=== PATIENT | female | born 1980 | race Caucasian/White ===

== ENCOUNTER 2017-11-21 08:44 | Emergency (ER) | payer OTHER ==
--- NOTE | 2017-11-21 10:53 | RAD REPORT ---
EXAM DESCRIPTION: RAD - C Spine Ap/Lat - 11/21/2017 10:18 am CLINICAL HISTORY: Neck pain, radiculopathy. COMPARISON: None. FINDINGS: Cervical bodies are normal in height and alignment. No fracture or acute bony process seen . No disc space narrowing. There is no prevertebral soft tissue thickening or other suspicious soft tissue finding. IMPRESSION: Negative cervical spine examination.
--- NOTE | 2017-11-21 10:54 | ER ---
Nurse's Notes [facility] Name: Addis Jett Age: 37 yrs Sex: Female : 1980 Arrival Date: 11/21/2017 Time: 08:48 Bed 19 Private MD: Diagnosis: Sprain of ligaments of cervical spine;Muscle spasm of back Presentation: 11/21 08:59 Presenting complaint: Patient states: R sided neck pain that began 4 days ago, has ss gotten worse and now radiates down R arm and right side of back. Transition of care: patient was not received from another setting of care. Onset of symptoms was November 17, 2017. Care prior to arrival: None. 08:59 Method Of Arrival: Ambulatory ss 08:59 Acuity: NORAH 4 ss JOB HONER: 11:24 LMP N/A - aj1 Historical: - Allergies: 09:00 Sulfa (Sulfonamide Antibiotics); ss - Home Meds: 09:00 Ambien 10 mg Oral tab 1 tab once daily [Active]; Lyrica Oral [Active]; ss - PMHx: 09:00 chronic back pain; ss - PSHx: 09:00 None; ss - Immunization history:: Adult Immunizations up to date. - Social history:: Smoking status: Patient uses tobacco products, smokes one-half pack cigarettes per day. Screenin:01 Abuse screen: Denies threats or abuse. Denies injuries from another. Nutritional aj1 screening: No deficits noted. Tuberculosis screening: No symptoms or risk factors identified. 11:23 Fall Risk None identified. aj1 Assessment: 10:01 General: Appears in no apparent distress. uncomfortable, Behavior is calm, cooperative, aj1 appropriate for age. Pain: Complains of pain in right side of neck Pain radiates to right trapezius and right scapular area Pain currently is 9 out of 10 on a pain scale. Quality of pain is described as sharp, Pain began 4 days ago Is continuous, Alleviated by nothing. Aggravated by movement. Neuro: Level of Consciousness is awake, alert, obeys commands, Oriented to person, place, time, situation, Ent Physician are equal bilaterally Moves all extremities. Full function Gait is steady, Speech is normal, Facial symmetry appears normal. Cardiovascular: Patient's skin is warm and dry. Respiratory: Airway is patent Respiratory effort is even, unlabored, Respiratory pattern is regular, symmetrical. GI: No signs and/or symptoms were reported involving the gastrointestinal system. : No signs and/or symptoms were reported regarding the genitourinary system. EENT: No signs and/or symptoms were reported regarding the EENT system. Derm: No signs and/or symptoms reported regarding the dermatologic system. Skin is pink, warm \T\ dry. normal. Musculoskeletal: Range of motion: limited in neck. 11:23 Reassessment: Patient appears in no apparent distress at this time. Patient and/or aj1 family updated on plan of care and expected duration. Pain level reassessed. Patient is alert, oriented x 3, equal unlabored respirations, skin warm/dry/pink. Patient states symptoms have improved. Vital Signs: 09:00 BP 126 / 86; Pulse 102; Resp 16; Temp 97.9; Pulse Ox 100% on R/A; Weight 63.5 kg; ss Height 5 ft. 5 in. (165.10 cm); Pain 8/10; 10:01 BP 107 / 82; Pulse 93; Resp 18; Pulse Ox 100% on R/A; aj1 11:23 BP 110 / 81; Pulse 85; Resp 16; Pulse Ox 100% on R/A; aj1 09:00 Body Mass Index 23.30 (63.50 kg, 165.10 cm) ED Course: 08:48 Patient arrived in ED. sb2 08:59 Triage completed. ss 09:00 Arm band placed on right wrist. 09:51 Romel Fregoso PA is PHCP. 8 09:51 Brian Nielsen MD is Attending Physician. jr8 10:01 Sarah Tomas RN is Primary Nurse. aj1 10:01 Patient has correct armband on for positive identification. Bed in low position. Call aj1 light in reach. Side rails up X 1. 10:01 No provider procedures requiring assistance completed. aj1 10:17 XRAY C Spine Ap/lat In Process Unspecified. EDMS 11:23 Patient did not have IV access during this emergency room visit. aj1 Administered Medications: 10:47 Drug: TORadol 60 mg Route: IM; Site: right gluteus; aj1 11:24 Follow up: Response: No adverse reaction aj1 10:47 Drug: Soma 350 mg Route: PO; aj1 11:25 Follow up: Response: No adverse reaction aj1 Outcome: 10:54 Discharge ordered by . karolyn 11:24 Discharged to home ambulatory. aj1 11:24 Condition: good 11:24 Discharge instructions given to patient, Instructed on discharge instructions, follow up and referral plans. no drinking with medication, no driving heavy equipment, medication usage, Demonstrated understanding of instructions, follow-up care, medications, Prescriptions given X 3. 11:25 Patient left the ED. aj1 Signatures: Dispatcher [employer] EDSarah Reddy RN RN aj1 Charisma Shipman RN RN ss Romel Fregoso, JOSÉ MIGUEL PA jr8 Anny Camp sb2 Corrections: (The following items were deleted from the chart) 09:03 09:00 BP 126 / 86; Pulse 102bpm; Resp 16bpm; Pulse Ox 100% RA; Temp 96.9F; 63.5 kg; ss Height 5 ft. 5 in.; BMI: 23.3; Pain 8/10; ss
--- NOTE | 2017-11-21 10:55 | EDPHYS ---
Physician Documentation [facility] Name: Addis Jett Age: 37 yrs Sex: Female : 1980 Arrival Date: 11/21/2017 Time: 08:48 Bed 19 Private MD: ED Physician Brian Nielsen HPI: 11/21 10:01 This 37 yrs old Female presents to ER via Ambulatory with complaints of Neck jr8 Pain, >24Hrs Old, Shoulder Pain. 10:01 The patient or guardian complains of decreased range of motion, pain, tenderness. The jr8 symptoms are located on the right side of neck and right trapezius . Onset: The symptoms/episode began/occurred gradually, 4 day(s) ago, and became worse and became persistent. Context: The neck injury/problem resulted from from unknown cause. Associated signs and symptoms: The patient has no apparent associated signs or symptoms. The pain radiates to the right arm. Modifying factors: The symptoms are alleviated by nothing. the symptoms are aggravated by movement. Severity of symptoms: At their worst the symptoms were moderate, in the emergency department the symptoms are unchanged. The patient has not experienced similar symptoms in the past. The patient has not recently seen a physician. 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 - Social history:: Smoking status: Patient uses tobacco products, smokes one-half pack cigarettes per day. ROS: 10:03 Eyes: Negative for injury, pain, redness, and discharge, ENT: Negative for injury, jr8 pain, and discharge, Cardiovascular: Negative for chest pain, palpitations, and edema, Respiratory: Negative for shortness of breath, cough, wheezing, and pleuritic chest pain, Abdomen/GI: Negative for abdominal pain, nausea, vomiting, diarrhea, and constipation, Back: Negative for injury and pain, MS/Extremity: Negative for injury and deformity, Skin: Negative for injury, rash, and discoloration, Neuro: Negative for headache, weakness, numbness, tingling, and seizure. 10:03 Neck: Positive for pain with movement, pain at rest, stiffness, tenderness, of the right neck and trapezius region . Exam: 10:03 Eyes: Pupils equal round and reactive to light, extra-ocular motions intact. Lids and jr8 lashes normal. Conjunctiva and sclera are non-icteric and not injected. Cornea within normal limits. Periorbital areas with no swelling, redness, or edema. ENT: Nares patent. No nasal discharge, no septal abnormalities noted. Tympanic membranes are normal and external auditory canals are clear. Oropharynx with no redness, swelling, or masses, exudates, or evidence of obstruction, uvula midline. Mucous membranes moist. Chest/axilla: Normal chest wall appearance and motion. Nontender with no deformity. No lesions are appreciated. Cardiovascular: Regular rate and rhythm with a normal S1 and S2. No gallops, murmurs, or rubs. Normal PMI, no JVD. No pulse deficits. Respiratory: Lungs have equal breath sounds bilaterally, clear to auscultation and percussion. No rales, rhonchi or wheezes noted. No increased work of breathing, no retractions or nasal flaring. Skin: Warm, dry with normal turgor. Normal color with no rashes, no lesions, and no evidence of cellulitis. MS/ Extremity: Pulses equal, no cyanosis. Neurovascular intact. Full, normal range of motion. Neuro: Awake and alert, GCS 15, oriented to person, place, time, and situation. Cranial nerves II-XII grossly intact. Motor strength 5/5 in all extremities. Sensory grossly intact. Cerebellar exam normal. Normal gait. 10:03 Neck: External neck: tenderness, that is moderate, of the right mid cervical area and right trapezius, C-spine: appears grossly normal, no vertebral tenderness, no crepitus, Thyroid: appears normal, Trachea: is midline with no obvious abnormalities, ROM/movement: pain, that is mild, with any movement, Lymph nodes: no appreciated lymphadenopathy. 10:03 Back: pain, that is mild, of the right trapezius, normal spinal alignment noted, CVA tenderness, is absent. Vital Signs: 09:00 BP 126 / 86; Pulse 102; Resp 16; Temp 97.9; Pulse Ox 100% on R/A; Weight 63.5 kg; ss Height 5 ft. 5 in. (165.10 cm); Pain 8/10; 10:01 BP 107 / 82; Pulse 93; Resp 18; Pulse Ox 100% on R/A; aj1 11:23 BP 110 / 81; Pulse 85; Resp 16; Pulse Ox 100% on R/A; aj1 09:00 Body Mass Index 23.30 (63.50 kg, 165.10 cm) ss MDM: 09:51 Patient medically screened. jr8 10:54 Data reviewed: vital signs, nurses notes, radiologic studies, plain films, and as a jr8 result, I will discharge patient. Data interpreted: Pulse oximetry: on room air is 100 %. Interpretation: normal. Counseling: I had a detailed discussion with the patient and/or guardian regarding: the historical points, exam findings, and any diagnostic results supporting the discharge/admit diagnosis, radiology results, the need for outpatient follow up, a family practitioner, to return to the emergency department if symptoms worsen or persist or if there are any questions or concerns that arise at home. 11:06 ED course: explicit instructions to stop her Zanaflex while utilizing the Flexeril. jr8 Patient understood and would stop her medicaiton. 11/21 09:59 Order name: XRAY C Spine Ap/lat; Complete Time: 10:54 jr8 Administered Medications: 10:47 Drug: TORadol 60 mg Route: IM; Site: right gluteus; aj1 11:24 Follow up: Response: No adverse reaction aj1 10:47 Drug: Soma 350 mg Route: PO; aj1 11:25 Follow up: Response: No adverse reaction aj1 Disposition: 12:27 Co-signature as Attending Physician, Brian Nielsen MD I agree with the assessment and sebastian plan of care. Disposition: 11/21/17 10:54 Discharged to Home. Impression: Sprain of ligaments of cervical spine, Muscle spasm of back. - Condition is Stable. - Discharge Instructions: Cervical Sprain, Heat Therapy. - Prescriptions for Ibuprofen 800 mg Oral Tablet - take 1 tablet by ORAL route every 12 hours As needed take with food; 20 tablet. Cyclobenzaprine 10 mg Oral Tablet - take 1 tablet by ORAL route every 8 hours As needed; 30 tablet. Tramadol 50 mg Oral Tablet - take 1 tablet by ORAL route every 8 hours as needed; 12 tablet. - Medication Reconciliation Form, Thank You Letter, Antibiotic Education, Prescription Opioid Use form. - Follow up: Private Physician; When: 2 - 3 days; Reason: Recheck today's complaints, Continuance of care, Re-evaluation by your physician. - Problem is new. - Symptoms have improved. Signatures: Dispatcher [employer] Sarah Mattson RN RN aj1 Brian Nielsen MD MD cha Smirch, Shelby, RN RN Romel Fregoso PA PA jr8
[2017-11-21] MEDS ORDERED: CARISOPRODOL 350 MG TAB PO ONE (11:02)
[2017-11-21] MEDS ORDERED: KETOROLAC 30 MG/ML INJ ONE (11:02)
== END 2017-11-21 11:25 | disposition home or self-care (01) ==
LOC: ER 08:44
DX: Z88.2 Allergy status to sulfonamides; M62.830 Muscle spasm of back; F17.210 Nicotine dependence, cigarettes, uncomplicated; S13.4XXA Sprain of ligaments of cervical spine, initial encounter
CPT/HCPCS: 72040; 96372; 99283

== ENCOUNTER 2020-01-09 23:50 | Emergency (ER) | payer OTHER ==
--- OUTSIDE RECORDS SUMMARY | 2020-01-09 23:53 | XMS REPORT ---
:1980 Author Organization [facility] t Address [address] [place] [address] Care Team Providers Name Role Phone Bindu Peters Attending Clinician Doctor Unassigned, Name Attending Clinician Unavailable Payers Payer Name Policy Type Policy Number Effective Date Expiration Date S ource Problems This patient has no known problems. Allergies, Adverse Reactions, Alerts Allergy Allergy Status Severity Reaction(s) Onset Inactive Treating Comm ents Source Name Type Date Date Clinician Sulfa DA Active MO 2017-0 [facility] (Sulfona 8-30 [place] mide 00:00: [facility] Antibiot 00 dic ics) [facility] Medications This patient has no known medications. Procedures This patient has no known procedures. Encounters Start End Encounter Admission Attending Care Care Encounter Source Date/Time Date/Time Type Type Clinicians Facility Department ID 2019-09-29 2019-09-29 Emergency Mariella Toro [facility] [id number] 12:52:02 14:34:00 Bindu Villagran [id number] [place] [id number] [place] [id number] 2019-09-29 2019-09-29 Orders Doctor DIETER [id number] 00:00:00 00:00:00 Only UnassignedHEIDY [id number] [place] [facility] [id number] Results This patient has no known results.
--- OUTSIDE RECORDS SUMMARY | 2020-01-09 23:54 | XMS REPORT | Summary of Care ---
:1980 Author Organization [facility] Address [address] [place] [id number] Care Team Providers Name Role Phone Anoop Sylvester Primary Care Provider Reason for Visit Reason Comments Flank Pain right Auth/Cert Status Reason Specialty Diagnoses / Referred By Referred To Procedures Contact Contact Emergency Medicine Ad[facility] Em ergency Dept [address] [place] [address] Fax: Encounter Details Date Type Department Care Team Description 09/29/2019 Emergency [facility]-Emergency Mariella Chamorro, Flank pain (Primary Dx); Department PAC Acute cystitis with hematuria [address] [place] [address] [address] [place] [address] [address] [place] [address] Allergies Active Allergy Reactions Severity Noted Date Comments Codeine Nausea and/or Vomiting 03/30/2016 Sulfa (Sulfonamide Antibiotics) Rash 6 documented as of this encounter (statuses as of 09/29/2019) Medications Medication Sig Dispensed Refills Start End Date Status Date zolpidem (AMBIEN) 10 Take 10 mg by 0 Active mg tablet mouth at bedtime as needed for Insomnia. tiZANidine (ZANAFLEX) Take 2 mg by 0 Active 2 mg tablet mouth every 6 (six) hours as needed. naproxen sodium Take 220 mg by 0 Active (ALEVE) 220 mg tablet mouth 2 (two) times daily with meals. Capsaicin (CAPZASIN-P) Apply to 2 Tube 1 Active 0.035 % Crea area(s) 4 6 (four) times daily as needed for Pain (scale 4-6). methylPREDNISolone Take by mouth 21 Each 0 Active (MEDROL, INNA,) 4 mg SEE-INSTRUCTIO 7 tablets NS. follow package directions nystatin-triamcinolone Apply to 15 g 1 Active cream area(s) 2 7 (two) times daily. LYRICA 150 mg capsule 0 Active 7 phenazopyridine 200 mg Take 1 tablet 9 tablet 0 Active tablet by mouth 3 8 (three) times daily as needed for Pain. ibuprofen 600 mg Take 1 tablet 30 tablet 0 Active tablet by mouth every 8 6 (six) hours as needed for Pain (scale 4-6). ondansetron (ZOFRAN Take 1 tablet 10 tablet 0 Active ODT) 4 mg by mouth every 8 disintegrating tablet 8 (eight) hours as needed for Nausea and Vomiting (N/V). esomeprazole (NEXIUM) Take 20 mg by 15 capsule 0 Active 20 mg mouth daily 9 capsuleIndications: before a meal. Epigastric pain GABAPENTIN ORAL Take by 0 Acti ve mouth. proMETHazine 25 mg Take 1 tablet 12 tablet 0 Active tabletIndications: by mouth every 9 Pyelonephritis, acute 6 (six) hours as needed for Nausea and Vomiting (N/V). traMADOL 50 mg Take 1 tablet 15 tablet 0 A ctive tabletIndications: by mouth every 9 Pyelonephritis, acute 6 (six) hours as needed for Pain (scale 7-10). cephALEXin (KEFLEX) Take 1 capsule 30 capsule 0 09/27 320 Active 500 mg by mouth 3 0 20 capsuleIndications: (three) times Acute cystitis with daily for 10 hematuria days. ibuprofen 800 mg Take 1 tablet 30 tablet 0 Active tabletIndications: by mouth every 0 Acute cystitis with 8 (eight) hematuria hours as needed for Pain (scale 4-6). cephALEXin (KEFLEX) Take 1 capsule 30 capsule 0 20 Discontinued 500 mg by mouth 3 0 20 capsuleIndications: (three) times Acute cystitis with daily for 10 hematuria days. documented as of this encounter (statuses as of 09/29/2019) Active Problems Problem Noted Date Sleep apnea, unspecified type 09/05/2016 Smoking greater than 10 pack years 09/05/2016 Chronic midline low back pain with right-sided sciatic a 09/05/2016 Snoring 04/04/2016 Right-sided low back pain with right-sided sciatica Myofascial pain syndrome 04/04/2016 Smoking 04/04/2016 Chronic fatigue 04/04/2016 documented as of this encounter (statuses as of 09/29/2019) Resolved Problems Problem Noted Date Resolved Date Chronic midline low back pain without sciatica 09/05/2016 09/05/2016 documented as of this encounter (statuses as of 09/29/2019) Social History Tobacco Use Types Packs/Day Years Used Date Current Every Day Smoker Cigarettes 0.5 15 Alcohol Use Drinks/Week oz/Week Comments Yes 0 Standard drinks or equivalent 0.0 Sex Assigned at Date Recorded Not on file Job Start Date Occupation Industry Not on file Not on file Not on file Travel History Travel Start Travel End No recent travel history available. documented as of this encounter Last Filed Vital Signs Vital Sign Reading Time Taken Comments Blood Pressure 120/75 09/29/2019 12:23 PM CUSTOMER SUPPORT ASSISTANT Pulse 127 09/29/2019 12:23 PM CUSTOMER SUPPORT ASSISTANT Temperature 36.9 C (98.4 F) 09/29/2019 12:23 PM CUSTOMER SUPPORT ASSISTANT Respiratory Rate 16 09/29/2019 12:23 PM CUSTOMER SUPPORT ASSISTANT Oxygen Saturation 100% 09/29/2019 12:23 PM CUSTOMER SUPPORT ASSISTANT Inhaled Oxygen Concentration - - Weight 63.5 kg (140 lb) 09/29/2019 12:23 PM CUSTOMER SUPPORT ASSISTANT Height 165.1 cm (5' 5") 09/29/2019 12:23 PM CUSTOMER SUPPORT ASSISTANT Body Mass Index 23.3 09/29/2019 12:23 PM CUSTOMER SUPPORT ASSISTANT documented in this encounter Discharge Instructions AttachmentsThe following attachments cannot be sent through Care Everywhere. Urinary Tract Infections (UTIs), Understanding ([facility])documented in this encounter Plan of Treatment Name Type Priority Associated Diagnoses Date/Ti me URINE CULTURE LAB STAT Acute cystitis with hematur ia 09/29/2019 2:01 PM CUSTOMER SUPPORT ASSISTANT Name Type Priority Associated Diagnoses Order S chedule URINE CULTURE LAB Routine Acute cystitis with ONCE fo r 1 Occurrences hematuria starting 2019 until 09/29/2019 Health Maintenance Due Date Last Done Comments PNEUMOCOCCAL 0-64 YEARS COMBINED SERIES (1 of 1 - 1986 PPSV23) DTaP,Tdap,and Td Vaccines (1 - Tdap) 1991 PAP SMEAR 2001 INFLUENZA VACCINE (#1) 2019 documented as of this encounter Procedures Procedure Name Priority Date/Time Associated Diagnosis Comme nts URINALYSIS STAT 09/29/2019 12:31 PM Flank pain Results for this CUSTOMER SUPPORT ASSISTANT procedure are i n the results section . documented in this encounter Results URINALYSIS (09/29/2019 12:31 PM CUSTOMER SUPPORT ASSISTANT) Pathologist Sig nature APPEARANCE Cloudy (A) Clear [facility] COLOR Yellow Yellow [facility] PH 5.0 4.8 - 8.0 [facility] SP GRAVITY 1.009 1.003 - 1.030 [facility] GLU U QUAL Normal Normal [facility] BLOOD 2+ (A) Negative [facility] KETONES Negative Negative [facility] PROTEIN Negative Negative [facility] UROBILIN Normal Normal [facility] BILIRUBIN Negative Negative [facility] NITRITE Positive (A) Negative [facility] LEUK NISH 500/uL (A) Negative [facility] RBC/HPF 16 (H) 0 - 3 HPF [facility] WBC/HPF >182 (H) 0 - 5 HPF [facility] BACTERIA Few (A) Negative [facility] MUCOUS Slight (A) Negative LPF [facility] WBC CLUMPS 9 (H) <=1 HPF [facility] YEAST BUD 17 (H) <=1 HPF [facility] Specimen Urine - URINE, CLEAN CATCH Performing Organization Address City/State/Zipcode Phone Number [facility] CLIA: [id number], [address] [place], [place] [address] documented in this encounter Visit Diagnoses Diagnosis Flank pain - Primary Abdominal pain, unspecified site Acute cystitis with hematuria Acute cystitis documented in this encounter Administered Medications Medication Order MAR Action Action Date Dose Rate Site cefTRIAXone (ROCEPHIN) Given 09/29/2019 2:02 PM 1,000 mg Left injection 1,000 mg CUSTOMER SUPPORT ASSISTANT Dorsogluteal-IM 1,000 mg, Intramuscular, Q24H, First dose on Sun09/29/19 at 1445, Until Discontinued, MUNA, Reason for Anti-Infective: Documented Infection, Documented Infection Site: Urine, Duration of Therapy: Other (see Comments), environmental field team member approving Restricted medication: Mariella CHAMORRO Medication Order MAR Action Action Date Dose Rate Site ibuprofen (IBU) tablet 800 mg Given 09/29/2019 2:01 PM CUSTOMER SUPPORT ASSISTANT 800 mg 800 mg, Oral, ONCE, 1 dose, Sun09/29/19 at 1500, MUNA documented in this encounter documented as of this encounter
--- OUTSIDE RECORDS SUMMARY | 2020-01-09 23:54 | XMS REPORT | Summary of Care ---
:1980 Author Organization [facility] - Health Address [address] [place] [address] Care Team Providers Name Role Phone Unavailable Primary Care Provider Unavailable Encounter Details Date Type Department Care Team Description 09/29/2019 Orders Only [facility] Doctor Unassigned, [address] [facility] [place] [address] [address] [place] [address] Allergies Active Allergy Reactions Severity Noted Date Comments Codeine Nausea and/or Vomiting 03/30/2016 Sulfa (Sulfonamide Antibiotics) Rash 6 documented as of this encounter (statuses as of 09/29/2019) Medications Medication Sig Dispensed Refills Start Date End Date Status zolpidem (AMBIEN) 10 mg Take 10 mg by 0 Active tablet mouth at bedtime as needed for Insomnia. tiZANidine (ZANAFLEX) 2 Take 2 mg by 0 Active mg tablet mouth every 6 (six) hours as needed. naproxen sodium (ALEVE) Take 220 mg by 0 Active 220 mg tablet mouth 2 (two) times daily with meals. Capsaicin (CAPZASIN-P) Apply to 2 Tube 1 04/04/2016 Active 0.035 % Crea area(s) 4 (four) times daily as needed for Pain (scale 4-6). methylPREDNISolone Take by mouth 21 Each 0 12/26/2016 Active (MEDROL, INNA,) 4 mg SEE-INSTRUCTIONS tablets . follow package directions nystatin-triamcinolone Apply to 15 g 1 12/26/2016 Active cream area(s) 2 (two) times daily. LYRICA 150 mg capsule 0 07/30/2017 Active phenazopyridine 200 mg Take 1 tablet by 9 tablet 0 02/20/2018 Active tablet mouth 3 (three) times daily as needed for Pain. ibuprofen 600 mg tablet Take 1 tablet by 30 tablet 0 8 Active mouth every 6 (six) hours as needed for Pain (scale 4-6). ondansetron (ZOFRAN ODT) Take 1 tablet by 10 tablet 0 02/21/20 18 Active 4 mg disintegrating mouth every 8 tablet (eight) hours as needed for Nausea and Vomiting (N/V). esomeprazole (NEXIUM) 20 Take 20 mg by 15 capsule 0 01/30/2019 Active mg capsuleIndications: mouth daily Epigastric pain before a meal. GABAPENTIN ORAL Take by mouth. 0 Active proMETHazine 25 mg Take 1 tablet by 12 tablet 0 02/18/2019 Active tabletIndications: mouth every 6 Pyelonephritis, acute (six) hours as needed for Nausea and Vomiting (N/V). traMADOL 50 mg Take 1 tablet by 15 tablet 0 02/18/2019 Active tabletIndications: mouth every 6 Pyelonephritis, acute (six) hours as needed for Pain (scale 7-10). documented as of this encounter (statuses as [...] of this encounter Last Filed Vital Signs Not on filedocumented in this encounter Plan of Treatment Health Maintenance Due Date Last Done Comments PNEUMOCOCCAL 0-64 YEARS COMBINED SERIES (1 of 1 - 1986 PPSV23) DTaP,Tdap,and Td Vaccines (1 - Tdap) 1991 PAP SMEAR 2001 INFLUENZA VACCINE (#1) 2019 documented as of this encounter Procedures Procedure Name Priority Date/Time Associated Diagnosis Comme nts NOTICE OF PRIVACY Routine 09/29/2019 12:12 PM TOLL SERVICE OBSERVER PRACTICES CONSENT/REFUSAL FOR Routine 09/29/2019 12:12 PM TOLL SERVICE OBSERVER DIAGNOSIS AND TREATMENT documented in this encounter Results Not on filedocumented in this encounter Insurance Payer Benefit Plan / Group Subscriber ID Effective Dates Phone Address Type [place] [id number] 2010-Present [place] [id number] 2010-Present documented as of this encounter
[2020-01-10] MEDS ORDERED: NA CHLORIDE 0.9% 1,000 ML ONE (00:21)
[2020-01-10] MEDS ORDERED: MORPHINE 2 MG/ML SYR ONE ×2 (00:21→02:52)
[2020-01-10 00:36] LABS: Absolute Lymphocytes (CBC) 2.1 K/uL (0.7-4.9); Basophils % 0.7 % (0-1.3); Hematocrit 37.7 % (36.0-45.0); Lymphocytes % 26.5 % (15.3-44.8); MPV 8.2 fL (7.6-11.3); RBC Red Blood Cell Count 4.45 M/uL (3.86-4.86)
[2020-01-10 00:57] LABS: Urine Blood 2+ (NEG); Urine Glucose NEGATIVE (NEG); Urine Protein NEGATIVE (NEG); Urine Specific Gravity >1.030 (1.005-1.030)
[2020-01-10 01:13] LABS: ALT/SGPT 19 U/L (12-78); AST/SGOT 19 U/L (15-37); Albumin 3.6 g/dL (3.4-5.0); Alkaline Phosphatase 26 U/L (45-117); BUN Blood Urea Nitrogen 15 mg/dL (7-18); Bicarbonate 23 mmol/L (21-32); Bilirubin Direct < 0.1 mg/dL (0-0.2); Bilirubin Total 0.2 mg/dL (0.2-1.0); Glucose Level 83 mg/dL (74-106); Lipase 216 U/L (73-393); Potassium 3.9 mmol/L (3.5-5.1); Protein, Total 7.5 g/dL (6.4-8.2); Sodium Level 140 mmol/L (136-145)
[2020-01-10 01:16] LABS: Urine Bacteria 20-50 /HPF (<20); Urine Culture Reflex Order REFLEXED; Urine Mucus 1+ /HPF (NONE SEEN)
--- NOTE | 2020-01-10 02:10 | EDPHYS ---
Physician Documentation [facility] Name: Addis Jett Age: 39 yrs Sex: Female : 1980 Arrival Date: 01/09/2020 Time: 23:54 Bed 13 Private MD: ED Physician Brian Nielsen HPI: 01/09 00:00 This 39 yrs old Female presents to ER via Ambulatory with complaints of R cp Side Pain. 00:00 The patient presents with abdominal pain right lower quadrant. cp 00:00 Onset: The symptoms/episode began/occurred yesterday. cp 00:00 The symptoms radiate to right back. Associated signs and symptoms: Pertinent positives: cp dysuria, nausea, vomiting, Pertinent negatives: blood in stools, constipation, diarrhea, fever, active vomiting. 00:00 The symptoms are described as sharp, shooting. cp Historical: - Allergies: 00:04 Sulfa (Sulfonamide Antibiotics); sg 00:05 Codeine; sg - Home Meds: 00:04 Ambien 10 mg Oral tab 1 tab once daily [Active]; gabapentin 600 mg Oral tab 1 tab 3 sg times per day [Active]; Adderall XR Oral [Active]; Motrin Oral [Active]; - PMHx: 00:04 chronic back pain; sg - PSHx: 00:04 None; sg - Immunization history:: Adult Immunizations up to date. - Social history:: Smoking status: Patient denies any tobacco usage or history of. ROS: 00:05 Constitutional: Negative for body aches, chills, fever, poor PO intake. cp 00:05 Eyes: Negative for injury, pain, redness, and discharge. cp 00:05 ENT: Negative for ear pain, sore throat. 00:05 Cardiovascular: Negative for chest pain. 00:05 Respiratory: Negative for cough, shortness of breath, wheezing. 00:05 Abdomen/GI: Positive for abdominal pain, nausea, Negative for vomiting, diarrhea, constipation, black/tarry stool, rectal bleeding. 00:05 Back: Positive for flank pain, on the right, radiated pain, of the right low back. 00:05 : Positive for burning with urination, Negative for vaginal bleeding, vaginal discharge. 00:05 Neuro: Negative for headache, weakness. 00:05 All other systems are negative. Exam: 00:10 Constitutional: The patient appears in no acute distress, alert, awake, non-toxic, well cp developed, well nourished. 00:10 Head/Face: Normocephalic, atraumatic. cp 00:10 Eyes: Periorbital structures: appear normal, Conjunctiva: normal, no exudate, no injection, Lids and lashes: appear normal, bilaterally. 00:10 ENT: External ear(s): are unremarkable, Nose: is normal, Mouth: is normal, Posterior pharynx: Airway: no evidence of obstruction, patent. 00:10 Chest/axilla: Inspection: normal, Palpation: is normal, no crepitus, no tenderness. 00:10 Cardiovascular: Rate: tachycardic, Rhythm: regular. 00:10 Respiratory: the patient does not display signs of respiratory distress, Respirations: normal, no use of accessory muscles, no retractions, labored breathing, is not present. 00:10 Abdomen/GI: Inspection: abdomen appears normal, Bowel sounds: active, all quadrants, Palpation: soft, in all quadrants, moderate abdominal tenderness, in the right lower quadrant, rebound tenderness, is not appreciated, voluntary guarding, is not appreciated, involuntary guarding, is not appreciated. 00:10 Back: pain, that is moderate, of the right low back. 00:10 Skin: no rash present. Vital Signs: 00:12 BP 139 / 92; Pulse 100 MON; Resp 18; Temp 97.7; Pulse Ox 100% on R/A; Pain 8/10; sg 01:00 BP 132 / 88; Pulse 90; Resp 18; Temp 97.9; Pulse Ox 100% on R/A; sg 02:00 BP 122 / 72; Pulse 87; Resp 17; Temp 97.9; Pulse Ox 100% on R/A; Pain 0/10; sg 03:00 BP 124 / 76; Pulse 78; Resp 18; Pulse Ox 100% on R/A; sg MDM: 01/08 23:56 Patient medically screened. cp 01/09 02:10 Differential diagnosis: appendicitis, bowel obstruction, cholecystitis, gastritis, sebastian non-specific abd pain, pancreatitis, Pelvic Inflammatory Disease, Ureterolithiasis, urinary tract infection. Data reviewed: vital signs, nurses notes, lab test result(s), radiologic studies, CT scan. Data interpreted: media monitor: not applicable for this patient encounter. Pulse oximetry: on room air is 100 %. Counseling: I had a detailed discussion with the patient and/or guardian regarding: the historical points, exam findings, and any diagnostic results supporting the discharge/admit diagnosis, lab results, radiology results, the need for outpatient follow up. ED course: follow up for brian stacy palacio, ct neg except for constipation. 01/09 00:11 Order name: Basic Metabolic Panel; Complete Time: 01: cp 01/09 00:11 Order name: CBC with Diff; Complete Time: : cp 01/09 01:17 Interpretation: Normal except: MCV 84.8; MCH 29.2. cp 01/09 00:11 Order name: Hepatic Function; Complete Time: : cp 01/09 00:11 Order name: Lipase; Complete Time: : cp 01/09 00:11 Order name: Urine Microscopic Only; Complete Time: 01: cp 01/09 00:53 Order name: Urine Dipstick--Ancillary (enter results); Complete Time: 01: ar5 01/09 00:11 Order name: IV Saline Lock; Complete Time: 00:13 cp 01/09 00:11 Order name: Labs collected and sent; Complete Time: 00:13 cp 01/09 00:11 Order name: CT Abd/Pelvis - PO and IV Contrast cp 01/09 00:53 Order name: Urine --Ancillary (enter results); Complete Time: 01:17 ar5 01/09 01:17 Order name: Urine Culture EDAK 01/09 00:11 Order name: Urine Dipstick-Ancillary (obtain specimen); Complete Time: 00:51 cp 01/09 00:11 Order name: Urine Test (obtain specimen); Complete Time: 00:51 cp Administered Medications: 00:35 Drug: morphine 2 mg Route: IVP; Site: left antecubital; sg 01:00 Follow up: Response: No adverse reaction; Pain is decreased sg 00:40 Drug: NS 0.9% 1000 ml Route: IV; Rate: 1 bolus; Site: left antecubital; sg 02:00 Follow up: Response: No adverse reaction; IV Status: Completed infusion; IV Intake: sg 1000ml 02:39 Drug: Cipro 500 mg Route: PO; sg Disposition: 02:10 Co-signature as Attending Physician, Brian KABA I agree with the assessment and [facility] plan of care. Disposition: 01/10/20 02:09 Discharged to Home. Impression: Urinary tract infection, site not specified, Abdominal tenderness, Constipation. - Condition is Stable. - Discharge Instructions: Abdominal Pain, Adult, Constipation, Adult, Constipation, Adult, [id number], Abdominal Pain, Adult, [id number], Urinary Tract Infection, Adult. - Prescriptions for Cipro 250 mg Oral Tablet - take 2 tablets by ORAL route every 12 hours for 7 days; 14 tablet. Zofran 4 mg Oral Tablet - take 1 tablet by ORAL route every 12 hours As needed; 20 tablet. Miralax 17 gram/dose Oral - take 1 packet by ORAL route once daily dilute powder in 8 ounces of water or juice; 14 packet. - Medication Reconciliation Form, Thank You Letter, Antibiotic Education, Prescription Opioid Use form. - Follow up: Private Physician; When: 2 - 3 days; Reason: Worsening of condition. - Problem is new. - Symptoms have improved. Signatures: Dispatcher [employer] EDAK Aditya Araujo RN RN sg Anderson, Corey, MD MD cha Page, Corey, PA PA cp Corrections: (The following items were deleted from the chart) 03:04 02:09 01/10/2020 02:09 Discharged to Home. Impression: Urinary tract infection, site sg not specified; Abdominal tenderness; Constipation. Condition is Stable. Discharge Instructions: Urinary Tract Infection, Adult, Abdominal Pain, Adult, Abdominal Pain, Adult, [id number]. Prescriptions for Cipro 250 mg Oral Tablet - take 2 tablets by ORAL route every 12 hours for 7 days; 14 tablet, Zofran 4 mg Oral Tablet - take 1 tablet by ORAL route every 12 hours As needed; 20 tablet. and Forms are Medication Reconciliation Form, Thank You Letter, Antibiotic Education, Prescription Opioid Use. Follow up: Private Physician; When: 2 - 3 days; Reason: Worsening of condition. Problem is new. Symptoms have improved. [facility]
--- NOTE | 2020-01-10 02:10 | ER ---
Nurse's Notes [facility] Name: Addis Jett Age: 39 yrs Sex: Female : 1980 Arrival Date: 01/09/2020 Time: 23:54 Bed 13 Private MD: Diagnosis: Urinary tract infection, site not specified;Abdominal tenderness;Constipation Presentation: 01/09 00:02 Chief complaint: Patient states: RLQ and R pelvic pain that began a day or two ago, sg reports having nausea and vomiting, unsure if any fever at home, states that pain with urination, when stream ends having severe sharp shooting pain from right lower abd area. States hx of having kidney stones and kidney problems in the past. Coronavirus screen: Proceed with normal triage. Ebola Screen: Patient negative for fever greater than or equal to 101.5 degrees Fahrenheit, and additional compatible Ebola Virus Disease symptoms Patient denies exposure to infectious person. Patient denies travel to an Ebola-affected area in the 21 days before illness onset. No symptoms or risks identified at this time. Initial Sepsis Screen: Does the patient meet any 2 criteria? No. Patient's initial sepsis screen is negative. Does the patient have a suspected source of infection? No. Patient's initial sepsis screen is negative. Risk Assessment: Do you want to hurt yourself or someone else? Patient reports no desire to harm self or others. Onset of symptoms was January 10, 2020. Care prior to arrival: None. 00:02 Method Of Arrival: Ambulatory sg 00:02 Acuity: NORAH 3 sg Historical: - Allergies: 00:04 Sulfa (Sulfonamide Antibiotics); sg 00:05 Codeine; sg - Home Meds: 00:04 Ambien 10 mg Oral tab 1 tab once daily [Active]; gabapentin 600 mg Oral tab 1 tab 3 sg times per day [Active]; Adderall XR Oral [Active]; Motrin Oral [Active]; - PMHx: 00:04 chronic back pain; sg - PSHx: 00:04 None; sg - Immunization history:: Adult Immunizations up to date. - Social history:: Smoking status: Patient denies any tobacco usage or history of. Assessment: 00:15 General: Appears in no apparent distress. uncomfortable, slender, well groomed, well sg developed, well nourished, Behavior is calm, cooperative, appropriate for age. Pain: Complains of pain in suprapubic area and right lower quadrant Quality of pain is described as aching, sharp. Neuro: Level of Consciousness is awake, alert, obeys commands, Oriented to person, place, time, Moves all extremities. Speech is normal, Facial symmetry appears normal. Cardiovascular: Capillary refill is brisk in bilateral Patient's skin is warm and dry. Chest pain is denied. Respiratory: Airway is patent Respiratory effort is even, unlabored, Respiratory pattern is regular, symmetrical. GI: Abdomen is flat, non-distended, Reports nausea, vomiting. : No signs and/or symptoms were reported regarding the genitourinary system. EENT: No signs and/or symptoms were reported regarding the EENT system. Derm: Skin is pink, warm \T\ dry. Musculoskeletal: Circulation, motion, and sensation intact. 00:30 Reassessment: Patient appears in no apparent distress at this time. CT notified pt sg finished PO contrast at 0025, spoke with Isadora in CT, awaiting CT scan at this time. 00:53 Reassessment: Patient appears in no apparent distress at this time. Patient states sg feeling better. 01:27 Reassessment: Patient appears in no apparent distress at this time. Patient and/or sg family updated on plan of care and expected duration. Pain level reassessed. awaiting CT scan at this time Patient states feeling better. Vital Signs: 00:12 BP 139 / 92; Pulse 100 MON; Resp 18; Temp 97.7; Pulse Ox 100% on R/A; Pain 8/10; sg 01:00 BP 132 / 88; Pulse 90; Resp 18; Temp 97.9; Pulse Ox 100% on R/A; sg 02:00 BP 122 / 72; Pulse 87; Resp 17; Temp 97.9; Pulse Ox 100% on R/A; Pain 0/10; sg 03:00 BP 124 / 76; Pulse 78; Resp 18; Pulse Ox 100% on R/A; sg ED Course: 01/08 23:54 Patient arrived in ED. ds1 23:55 Brian Cortes PA is PHCP. cp 23:55 Brian Nielsen MD is Attending Physician. cp 01/09 00:02 Aditya Araujo RN is Primary Nurse. sg 00:03 Triage completed. sg 00:03 Arm band placed on. EKG completed in triage. Results shown to MD. sg 00:15 Patient has correct armband on for positive identification. Bed in low position. Pulse sg ox on. NIBP on. Warm blanket given. Head of bed elevated. 00:22 Initial lab(s) drawn, by me, sent to lab. Missed attempt(s): 20 gauge in left sg antecubital area. Bleeding controlled, band aid applied, catheter tip intact. 00:35 Inserted saline lock: 22 gauge in left antecubital area, using aseptic technique. Blood sg collected. 00:50 Lab(s) recollected, by me, sent to lab. sg 01:54 CT Abd/Pelvis - PO and IV Contrast In Process Unspecified. EDMS 03:00 No provider procedures requiring assistance completed. IV discontinued, intact, sg bleeding controlled, No redness/swelling at site. Pressure dressing applied. Administered Medications: 00:35 Drug: morphine 2 mg Route: IVP; Site: left antecubital; sg 01:00 Follow up: Response: No adverse reaction; Pain is decreased sg 00:40 Drug: NS 0.9% 1000 ml Route: IV; Rate: 1 bolus; Site: left antecubital; sg 02:00 Follow up: Response: No adverse reaction; IV Status: Completed infusion; IV Intake: sg 1000ml 02:39 Drug: Cipro 500 mg Route: PO; sg Intake: 02:00 IV: 1000ml; Total: 1000ml. sg Outcome: 02:09 Discharge ordered by MD. cortes 03:00 Discharged to home ambulatory, with friend. sg 03:00 Condition: good 03:00 Discharge instructions given to patient, Instructed on discharge instructions, follow up and referral plans. medication usage, safety practices, Demonstrated understanding of instructions, follow-up care, medications, Prescriptions given X 3. 03:04 Patient left the ED. sg Signatures: Dispatcher [employer] EDMS Aditya Araujo RN RN sg Anderson, Corey, MD MD cha Sanford, Demi ds1 Brian Cortes PA PA cp
[2020-01-10] MEDS ORDERED: CIPROFLOXACIN HCL 500 MG TAB ONE (02:47)
--- NOTE | 2020-01-10 19:43 | RAD REPORT ---
EXAM DESCRIPTION: CT - Abdomen Pelvis W Contrast - 01/10/2020 5:33 am CLINICAL HISTORY: RLQ abdomen pain COMPARISON: None. TECHNIQUE: CT ABDOMEN PELVIS WITH IV CONTRAST on 01/10/2020 12:11 AM CDT This exam was performed according to our departmental dose-optimization program, which includes autom ated exposure control, adjustment of the mA and/or kV according to patient size and/or use of iterati ve reconstruction technique. FINDINGS: Lower lungs are clear. Abdomen: The liver is normal in appearance. There is no biliary dilatation. Gallbladder is normal in appearance. The pancreas and spleen are normal in appearance. The adrenal glands and kidneys are unre markable. Abdominal aorta is normal in course and caliber without aneurysm. There is no free air. There is no r etroperitoneal adenopathy. Pelvis: There is moderate amount of stool throughout the colon. Urinary bladder is unremarkable. Ther e is no free fluid. Uterus is normal in size. Appendix is normal. Skeleton: There are no acute osseous findings. No suspicious bony lesions. IMPRESSION: Constipation. No acute inflammatory process. Electronically signed by: Keo Funez MD 01/10/2020 2:02 AM CDT Due to temporary technical issues with the PACS/Fluency reporting system, reports are being signed by the in house radiologist as a courtesy to ensure prompt reporting. The interpreting radiologist is amber browerly responsible for the content of the report.
== END 2020-01-10 03:04 | disposition home or self-care (01) ==
LOC: ER 23:50
DX: N39.0 Urinary tract infection, site not specified (principal); K59.00 Constipation, unspecified; Z88.2 Allergy status to sulfonamides; Z88.5 Allergy status to narcotic agent
CPT/HCPCS: 96361; 87088; 85025; 87086; 80048; 36415; 81025; 80076; 87077; 87186; 83690; 74177; 96374; 99284; Q9967; J2270 ×2; J7030; 81003; 81015